=== PATIENT | female | born 2000 | race Caucasian/White ===

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

== ENCOUNTER 2023-04-08 14:37 | Emergency (ER) | payer BC, OTHER ==
[2023-04-08 15:18] VITALS: TEMP 97.9
--- NOTE | 2023-04-08 15:18 | ED ---
General Adult HPI - General Source: patient, family, RN notes reviewed Mode of arrival: ambulatory Limitations: no limitations <Naseem Glover - Last Filed: 04/08/23 15:17> - General Source: patient, family, RN notes reviewed Mode of arrival: ambulatory Limitations: no limitations - History of Present Illness MD Complaint: Right eye redness Onset/Timin -: days(s) <Yaneli Abernathy - Last Filed: 04/08/23 19:59> - General Chief complaint: Eye Problems Stated complaint: referal Time Seen by Provider: 04/08/23 15:17 - History of Present Illness Initial comments: 22-year-old female presents emergency Department when her right eye irritation. Patient has been done this for several days. Patient was seen at urgent care and follow-up with PCP today. Patient was sent here for further evaluation right eye states that she does not have her contact in her eyes that is pleuritic she states she does have some discomfort of the right eye is red, swollen. (Naseem Glover) In addition to the information above, patient states she went to urgent care 4 days ago. She was started on ofloxacin eyedrops and told to take antihistamines at that time. She has not had any improvement despite the medications. She saw her PCP today and had fluorescein staining done, which was found to be negative. She was instructed to come to the emergency department for further evaluation. She is a contact lens wearer, but states that she's not been wearing contacts since this started, and is thus unsure if her vision is any worse. Describes the eye as being more of a discomfort than a pain. Denies any history of similar problems in the past. (Yaneli Abernathy) - Related Data Previous Rx's Medication Instructions Recorded predniSONE 50 mg PO DAILY 5 Days #5 tablet 04/08/23 Allergies Allergy/AdvReac Type Severity Reaction Status Date / Time No Known Allergies Allergy Verified 04/08/23 15:14 Review of Systems ROS Other: All systems not noted in ROS Statement are negative. <Naseem Glover - Last Filed: 04/08/23 15:17> ROS Other: All systems not noted in ROS Statement are negative. <Yaneli Abernathy - Last Filed: 04/08/23 19:59> ROS Statement: Those systems with pertinent positive or pertinent negative responses have been documented in the HPI. Past Medical History Past Medical History: No Reported History History of Any Multi-Drug Resistant Organisms: None Reported Past Surgical History: Adenoidectomy Past Psychological History: No Psychological Hx Reported Smoking Status: Vaper Past Alcohol Use History: Occasional Past Drug Use History: Marijuana <Naseem Glover - Last Filed: 04/08/23 15:17> General Exam Limitations: no limitations <Naseem Glover - Last Filed: 04/08/23 15:17> Limitations: no limitations General appearance: alert, in no apparent distress Head exam: Present: atraumatic, normocephalic, normal inspection Eye exam: Present: PERRL, EOMI, other (Right conjunctival injection). Absent: periorbital swelling, periorbital tenderness Pupils: Present: normal accommodation Expanded IOP (R) in mmH IOP (L) in mmH IOP measured with: Tonopen Respiratory exam: Present: normal lung sounds bilaterally. Absent: respiratory distress, wheezes, rales, rhonchi, stridor Cardiovascular Exam: Present: regular rate, normal rhythm, normal heart sounds. Absent: systolic murmur, diastolic murmur, rubs, gallop, clicks Neurological exam: Present: alert, oriented X3, CN II-XII intact Psychiatric exam: Present: normal affect, normal mood Skin exam: Present: warm, dry, intact, normal color. Absent: rash <Yaneli Abernathy - Last Filed: 04/08/23 19:59> - General Exam Comments Initial Comments: Visual Physical Exam Vital signs reviewed General: Well-appearing, nontoxic, no acute distress. Head: Normocephalic, atraumatic Eyes: PERRLA, EOMI right sclera injection ENT: Airway patent Chest: Nonlabored breathing Skin: No visual rash, normal skin tone Neuro: Alert and oriented 3 Musculoskeletal: No gross abnormalities (Naseem Glover) Course Vital Signs 04/08/23 04/08/23 15:14 18:12 Temperature 97.9 F Pulse Rate 85 82 Respiratory 16 18 Rate Blood Pressure 114/77 112/70 O2 Sat by Pulse 98 96 Oximetry Medical Decision Making <Yaneli Abernathy - Last Filed: 04/08/23 19:59> - Medical Decision Making This is a 22-year-old female who presents to the emergency department for right eye pain/redness. Was pt. sent in by a medical professional or institution? @ -Her PCP Did you speak to anyone other than the patient for history? @ -No Did you review nursing and triage notes? @ -Yes, and I agree, it is accurate with regards to the patient's symptoms. Were old charts reviewed? @ -No Differential Diagnosis? @ -Differential Eye Pain: Conjuncitivitis (viral, bacterial, allergic), corneal abrasion, foreign body, iritis, uveitis, keratitis, acute angle closure glaucoma, this is not meant to be an all-inclusive list. EKG interpreted by me (3pts min.)? @ -Not obtained X-rays interpreted by me (1pt min.)? @ -Not obtained CT interpreted by me (1pt min.)? @ -Not obtained U/S interpreted by me (1pt. min.)? @ -Not obtained What testing was considered but not performed? (CT, X-rays, U/S, labs)? Why? @ -None What meds were considered but not given? Why? @ -None Did you discuss the management of the patient with other professionals? @ -No Did you reconcile home meds? @ -No Was smoking cessation discussed for >3mins.? @ -No Was critical care preformed (if so, how long)? @ -No Were there social determinants of health that impacted care today? How? (Homelessness, low income, unemployed, alcoholism, drug addiction, transportation, low edu. Level, literacy, decrease access to med. care, senior living, rehab)? @ -No Was there de-escalation of care discussed even if they declined? (Discuss DNR or withdrawal of care, Hospice)? @ -No What co-morbidities impacted this encounter? (DM, HTN, Smoking, COPD, CAD, Cancer, CVA, Hep., AIDS, mental health diagnosis, sleep apnea, morbid obesity)? @ -None Was patient admitted / discharged? @ -Discharged. Physical examination consistent with an iritis/anterior uveitis. Intraocular pressures found to be within normal limits at 18 in the left eye and 19 in the right eye. I would expect an allergic and viral conjunctivitis to be bilateral, especially with how long symptoms have been going on at this point. We'll treat her with a course of steroids for possible iritis/anterior uveitis. Prescription for prednisone provided with dosing instructions reviewed. Information for ophthalmology follow-up provided. She is instructed to contact them tomorrow morning for a follow-up appointment and reevaluation of symptoms. Undiagnosed new problem with uncertain prognosis? @ -None Drug Therapy requiring intensive monitoring for toxicity (Heparin, Nitro, Insulin, Cardizem)? @ -None Were any procedures done? @ -None Diagnosis/symptom? @ -Iritis/Anterior uveitis Acute, or Chronic, or Acute on Chronic? @ -Acute Uncomplicated (without systemic symptoms) or Complicated (systemic symptoms)? @ -Uncomplicated Side effects of treatment? @ -None Exacerbation, Progression, or Severe Exacerbation] @ -Not applicable Poses a threat to life or bodily function? @ -No Return precautions reviewed in depth, the patient is instructed to return to the emergency department with any new, worsening, or concerning symptoms. Patient verbalized understanding. This case was discussed in detail with the attending ED physician, Dr. Patricio. Presentation, findings, and treatment plan discussed in detail as well. (Yaneli Abernathy) Disposition <Naseem Glover - Last Filed: 04/08/23 15:17> Is patient prescribed a controlled substance at d/c from ED?: No <Yaneli Abernathy - Last Filed: 04/08/23 19:59> Clinical Impression: Uveitis Disposition: HOME SELF-CARE Instructions (If sedation given, give patient instructions): Iritis (ED) Additional Instructions: Return to the emergency department with any new, worsening, or concerning symptoms. Take the prednisone daily for 5 days, with your next dose beginning tomorrow, as you received a dose in the emergency department today. Apply the eyedrops provided as 2 drops to the right eye every 4-6 hours while awake. Contact ophthalmology as listed below first thing tomorrow morning for a follow- up appointment. Prescriptions: predniSONE 50 mg PO DAILY 5 Days #5 tablet Referrals: Светлана Huang PAC [Primary Care Provider] - 1-2 days Paul Harding MD [STAFF PHYSICIAN] - 1-2 days Naseem Gallardo DO [Doctor of Osteopathic Medicine] - 1-2 days Helder Thomas MD [STAFF PHYSICIAN] - 1-2 days
[2023-04-08] MEDS ORDERED: predniSONE 50 MG TAB PO STA (17:44)
[2023-04-08] MEDS ORDERED: TOBRA-DEXAMET 0.3-0.1% OPHTH DROPS 2.5 ML BTL RIGHT EYE ONE (17:45)
[2023-04-08 18:13] VITALS: BP 112/70; PULSE 82; RESP 18
== END 2023-04-08 18:12 | disposition home or self-care (01) ==
LOC: EC 14:37
DX: H20.9 Unspecified iridocyclitis (principal); F17.290 Nicotine dependence, other tobacco product, uncomplicated; F12.90 Cannabis use, unspecified, uncomplicated
CPT/HCPCS: 99283; J7512